=== PATIENT | female | born 1995 | race Caucasian/White ===

== ENCOUNTER 2023-07-09 09:18 | Emergency (ER) | payer OTHER, MEDICAID, SELFPAY ==
[2023-07-09 09:31] VITALS: BP 104/69; PULSE 78; RESP 18; TEMP 36.7; O2SAT 100
--- NOTE | 2023-07-09 09:41 | ED_ITS ---
HPI - URI/Sore Throat General Chief Complaint: Upper Respiratory Symptoms Stated Complaint: fever Time Seen by Provider: 07/09/23 09:25 Source: patient Mode of arrival: Ambulatory History of Present Illness HPI Narrative: 27-year-old female with no reported past medical history presents for body aches, fever, frontal headache. She states that all she wanted was a note for work, but when she went to the walk-in clinic they did not take her insurance and referred her to the ER instead. Declines any testing today. Related Data Previous Rx's Medication Instructions Recorded acetaminophen 325 mg tablet 650 mg (2 x 325 mg) PO Q6H PRN 07/09/23 (Tylenol) fever or pain #90 tabs ibuprofen 200 mg tablet 400 mg (2 x 200 mg) PO Q8H PRN 07/09/23 fever or pain #90 tabs Allergies Allergy/AdvReac Type Severity Reaction Status Date / Time No Known Drug Allergies Allergy Verified 07/09/23 09:37 Review of Systems Review of Systems Narrative: Negative except as noted above Patient History Social History Smoking Status: Former smoker Smoking Status: Former smoker tobacco type: cigarettes Substance Use Type: does not use Exam Initial Vital Signs Initial Vital Signs: Vital Signs Temperature 98.0 F 07/09/23 09:31 Pulse Rate 78 07/09/23 09:31 Respiratory Rate 18 07/09/23 09:31 Blood Pressure 104/69 07/09/23 09:31 Pulse Oximetry 100 07/09/23 09:31 Oxygen Delivery Method Room Air 07/09/23 09:31 Const: Awake, alert, no acute distress, nontoxic appearing Eyes: PERRL, EOMI, conjunctiva normal ENT: Atraumatic, dentition normal, mucous membranes moist Cardiac: regular rate, regular rhythm RESP: unlabored, clear bilaterally, no wheezing GI: Atraumatic, soft, nontender, nondistended, no rebound, no guarding MSK: Atraumatic, full range of motion, pulses equal Skin: Warm, Dry, intact, no rashes Neuro: AO x3, CN II-XII grossly intact, moves all extremities Psych: affect normal, mood normal, not suicidal, not homicidal Course Course Course Narrative: Well-appearing patient, presenting with symptoms consistent with viral syndrome, here solely for a note for work. Offered Tylenol for headache, patient accepted. She is currently staying at a [facility] with her children who have similar symptoms. Tylenol and Motrin prescription sent to pharmacy of choice. Orders Ordered: ED Orders 07/09/23 09:36 Consult to CONFERENCE SERVICES COORDINATOR - Multiskill Operator Stat Discontinued Medications Acetaminophen (Acetaminophen 325 Mg Tablet) 975 mg PO NOW ONE Stop: 07/09/23 09:49 Last Admin: 07/09/23 09:54 Dose: 975 mg Documented By: ROVERTO Vital Signs Vital signs: Vital Signs - 8 hr 07/09/23 09:31 Temperature 98.0 F Pulse Rate 78 Respiratory Rate 18 Blood Pressure 104/69 Pulse Oximetry 100 Oxygen Delivery Method Room Air Discharge Plan Departure Patient Disposition: Home Clinical Impression: Acute viral syndrome Instructions: DI for Viral Syndrome Prescriptions: New acetaminophen [Tylenol] 325 mg tablet 650 mg PO Q6H PRN (Reason: fever or pain) Qty: 90 0RF ibuprofen 200 mg tablet 400 mg PO Q8H PRN (Reason: fever or pain) Qty: 90 0RF Stand Alone Forms: Patient Portal/API, Work Release Note
[2023-07-09] MEDS: ACETAMINOPHEN 325 MG TABLET 975 MG PO (09:54)
== END 2023-07-09 10:08 | disposition home or self-care (01) ==
PROVIDERS: Emergency Provider Emergency Medicine
DX: B34.9 Viral infection, unspecified (principal)
CPT/HCPCS: 99282; 99283

== ENCOUNTER 2023-07-18 09:12 | Emergency (ER) | payer OTHER, MEDICAID, SELFPAY ==
[2023-07-18 09:19] VITALS: BP 106/65; PULSE 82; RESP 16; TEMP 36.9; O2SAT 99; BMI 19.3
[2023-07-18 11:30] LABS: Bacteria Urine Few (2-10); RBC Urine None Seen (0-5/HPF); WBC Urine 1-5/HPF (0-5/HPF)
[2023-07-18 11:31] LABS: Culture Indicated Urine Specimen Cultured; Squamous Epithelial Cell Urine 1-5 /HPF (0-5/HPF)
--- NOTE | 2023-07-18 12:57 | DI.US.S_ITS ---
PROCEDURE: US PELVIC COMPLETE INDICATIONS: LOWER ABDOMINAL PAIN WORSE THAN USUAL. CURRENT MENSES TECHNIQUE: Real-time scanning was performed of the pelvic organs, with image documentation. Additional endovaginal scanning was necessary due to incomplete visualization of the adnexal and endometrial structures by transabdominal scanning. COMPARISON: None. FINDINGS: Uterus: Uterus is anteverted and normal in size at.8.3 x 4.8 x 3.9 cm. The myometrium is homogeneous. The endometrium measures 1.5 mm combined thickness. Ovaries: The right ovary measures 3.7 x 3.6 x 1.8 cm, with a calculated ovarian volume of 12.4 cc. The left ovary measures 4.1 x 2.7 x 2.7 cm, with a calculated ovarian volume of 14.9 cc. Cysts are present within the left ovary measuring 3.2 x 2.1 x 2.4 cm. Other: No pathologic free abdominal or pelvic fluid. Vertebral and venous flow is identified within the ovaries bilaterally. IMPRESSION: Left ovarian cysts. We strive to produce accurate, complete, and clear reports of imaging services. To assist us in improving patient care, this report was composed using standard report templates and voice recognition software. Therefore, it may contain abnormal punctuation, insertions and/or omissions. Occasional wrong-word or sound-alike substitutions may occur. Though we review the report and make efforts to correct it, we do recommend that the report be read carefully in proper context to recognize any text inaccuracies. Dictated by: Mary Grace Hall M.D. on 07/18/2023 at 14:15 Approved by: Mary Grace Hall M.D. on 07/18/2023 at 14:17
[2023-07-18] MEDS: ACETAMINOPHEN 325 MG TABLET 975 MG PO (13:09)
--- NOTE | 2023-07-18 13:09 | ED_ITS ---
HPI - Abdominal Pain <Allyson Grewal PA-C - Last Filed: 07/18/23 14:58> General Chief Complaint: Abdominal Pain Stated Complaint: inplant moved Time Seen by Provider: 07/18/23 09:34 Mode of arrival: Ambulatory History of Present Illness HPI narrative: Patient is a 27-year-old female who presents with 2 days of lower abdominal pain. She has a Nexplanon implant in her left upper arm and notes it has moved recently. It was placed in 2020 and expires 03/03. She denies fever chills, nausea vomiting, urinary symptoms. She normally has menses approximately once a month, although they have been irregular. She normally has heavy bleeding with minimal pain. Two days ago she had moderate pain with light bleeding, yesterday felt okay, and today woke up crying, states the pain is severe and the bleeding is very light. On reassessment during her visit to the emergency room, she reports the bleeding has increased to heavy which is normal for her. The pain is bilateral over her lower abdomen. She denies any vaginal discharge besides blood, no foul smell, no itching. She has not taken any medication prior to arrival. She states the pain is 9/10. Related Data Previous Rx's Medication Instructions Recorded acetaminophen 325 mg tablet 650 mg (2 x 325 mg) PO Q6H PRN 07/09/23 (Tylenol) fever or pain #90 tabs ibuprofen 200 mg tablet 400 mg (2 x 200 mg) PO Q8H PRN 07/09/23 fever or pain #90 tabs Allergies Allergy/AdvReac Type Severity Reaction Status Date / Time No Known Drug Allergies Allergy Verified 07/18/23 09:23 Review of Systems <Allyson Grewal PA-C - Last Filed: 07/18/23 14:58> Review of Systems ROS Unobtainable: All systems reviewed & are unremarkable except as noted in HPI and below Patient History <Allyson Grewal PA-C - Last Filed: 07/18/23 14:58> Social History Smoking Status: Former smoker Smoking Status: Former smoker tobacco type: cigarettes Substance Use Type: does not use Exam <Allyson Grewal PA-C - Last Filed: 07/18/23 14:58> Narrative Exam Narrative: GENERAL: 27 year old patient appears stated age. Well-developed patient, in mild distress. On the verge of tears. NEURO: AOx3. HEAD: Atraumatic. Normocephalic. EYES: Pupils equal round and reactive. Extraocular motions intact. No scleral icterus. No injection or drainage. ENT: Nose without bleeding or purulent drainage. Airway patent. RESPIRATORY: no distress or increased work of breathing GASTROINTESTINAL: Abdomen soft, non-tender to palpation, non distended. No CVA tenderness. EXTREMITIES: No edema or joint tenderness. SKIN: No rash or erythema of visible areas. Nexplanon palpable in posterior left upper arm, no erythema, edema. Distal circulation intact. Initial Vital Signs Initial Vital Signs: Vital Signs Temperature 98.5 F 07/18/23 09:19 Pulse Rate 82 07/18/23 09:19 Respiratory Rate 16 07/18/23 09:19 Blood Pressure 106/65 07/18/23 09:19 Pulse Oximetry 99 07/18/23 09:19 Oxygen Delivery Method Room Air 07/18/23 09:19 <Efraín Rincon DO - Last Filed: 07/18/23 14:59> Initial Vital Signs Initial Vital Signs: Vital Signs Temperature 98.5 F 07/18/23 09:19 Pulse Rate 82 07/18/23 09:19 Respiratory Rate 16 07/18/23 09:19 Blood Pressure 106/65 07/18/23 09:19 Pulse Oximetry 99 07/18/23 09:19 Oxygen Delivery Method Room Air 07/18/23 09:19 Course <Allyson Grewal PA-C - Last Filed: 07/18/23 14:58> Orders Ordered: ED Orders 07/18/23 11:05 Urine Culture Stat Urine Microscopic Stat 07/18/23 12:57 US pelvic complete Stat 07/18/23 14:10 Chlamydia Gonorrhea PCR -URINE Stat Discontinued Medications Acetaminophen (Acetaminophen 325 Mg Tablet) 975 mg PO NOW ONE Stop: 07/18/23 12:58 Last Admin: 07/18/23 13:09 Dose: 975 mg Documented By: ESPINOZA Ketorolac Tromethamine (Ketorolac 30 Mg/Ml Vial) 30 mg IM NOW ONE Stop: 07/18/23 12:58 Last Admin: 07/18/23 13:10 Dose: 30 mg Documented By: SB Vital Signs Vital signs: Vital Signs - 8 hr 07/18/23 09:19 07/18/23 14:12 Temperature 98.5 F 98.1 F Pulse Rate 82 65 Respiratory Rate 16 16 Blood Pressure 106/65 106/66 Pulse Oximetry 99 100 Oxygen Delivery Method Room Air Room Air <Efraín Rincon DO - Last Filed: 07/18/23 14:59> Orders Ordered: ED Orders 07/18/23 11:05 Urine Culture Stat Urine Microscopic Stat 07/18/23 12:57 US pelvic complete Stat 07/18/23 14:10 Chlamydia Gonorrhea PCR -URINE Stat Discontinued Medications Acetaminophen (Acetaminophen 325 Mg Tablet) 975 mg PO NOW ONE Stop: 07/18/23 12:58 Last Admin: 07/18/23 13:09 Dose: 975 mg Documented By: SB Ketorolac Tromethamine (Ketorolac 30 Mg/Ml Vial) 30 mg IM NOW ONE Stop: 07/18/23 12:58 Last Admin: 07/18/23 13:10 Dose: 30 mg Documented By: SB Vital Signs Vital signs: Vital Signs - 8 hr 07/18/23 09:19 07/18/23 14:12 Temperature 98.5 F 98.1 F Pulse Rate 82 65 Respiratory Rate 16 16 Blood Pressure 106/65 106/66 Pulse Oximetry 99 100 Oxygen Delivery Method Room Air Room Air MDM - Abdominal Pain <Allyson Grewal PA-C - Last Filed: 07/18/23 14:58> Lab Data Labs: Lab Results 07/18/23 Range/Units 11:05 Urine RBC None seen (0-5/HPF) Urine WBC 1-5/hpf (0-5/HPF) Ur Squamous Epith Cells 1-5 /hpf (0-5/HPF) Urine Bacteria Few (2-10) H (None) Ur Culture Indicated? Specimen cultured Point of care testing: Point of Care Testing Test Results Negative Urine Dip Bedside Urine Glucose Negative Bedside Urine Bilirubin - Negative Bedside Urine Ketone - Negative Urine Specific [place] 1.030 Bedside Urine Occult Blood ++ Bedside Urine pH 6.0 Bedside Urine Protein - Negative Bedside Urine Urobilinogen - Negative Bedside Urine Nitrite - Negative Bedside Urine Leukocytes - Negative Esterase Imaging Data US - FINISHING MACHINE TENDER: Radiologist's Impression: PROCEDURE: US PELVIC COMPLETE INDICATIONS: LOWER ABDOMINAL PAIN WORSE THAN USUAL. CURRENT MENSES TECHNIQUE: Real-time scanning was performed of the pelvic organs, with image documentation. Additional endovaginal scanning was necessary due to incomplete visualization of the adnexal and endometrial structures by transabdominal scanning. COMPARISON: None. FINDINGS: Uterus: Uterus is anteverted and normal in size at.8.3 x 4.8 x 3.9 cm. The myometrium is homogeneous. The endometrium measures 1.5 mm combined thickness. Ovaries: The right ovary measures 3.7 x 3.6 x 1.8 cm, with a calculated ovarian volume of 12.4 cc. The left ovary measures 4.1 x 2.7 x 2.7 cm, with a calculated ovarian volume of 14.9 cc. Cysts are present within the left ovary measuring 3.2 x 2.1 x 2.4 cm. Other: No pathologic free abdominal or pelvic fluid. Vertebral and venous flow is identified within the ovaries bilaterally. IMPRESSION: Left ovarian cysts. We strive to produce accurate, complete, and clear reports of imaging services. To assist us in improving patient care, this report was composed using standard report templates and voice recognition software. Therefore, it may contain abnormal punctuation, insertions and/or omissions. Occasional wrong-word or sound-alike substitutions may occur. Though we review the report and make efforts to correct it, we do recommend that the report be read carefully in proper context to recognize any text inaccuracies. Dictated by: Mary Grace Hall M.D. on 07/18/2023 at 14:15 Approved by: Mary Grace Hall M.D. on 07/18/2023 at 14:17 [facility] Narrative Medical decision making narrative: Multiple etiologies for patient's symptoms considered including, but not limited to: Ovarian torsion, ovarian cyst, ectopic , PID, menstrual cramps, constipation. Urine preganancy negative, UA with 2+ blood. Abdominal ultrasound with 2 left ovarian cysts, likely physiologic. Gonorrhea/chlamydia pending. Doubt PID as patient denies recent sexual activity, no discharge, acute onset of pelvic pain associated with menstrual bleeding. We will notify her if results are positive and require treatment. Pelvic exam not done today as patient reports no abnormal discharge, bleeding consistent with menstruation. Discussed results with patient, advised that these symptoms are likely secondary to menstrual c ramps, possibly worsened by the large cyst. I would suggest Tylenol, ibuprofen, rest and heat. She bleeds quite heavily and reports a history of being anemic; I advised her to follow up with her primary care guarding other control methods that may help decrease her bleeding. Return precautions advised. Patient's symptoms improved over duration of stay with above-stated therapies. Findings and discharge diagnosis discussed with patient/family followed by verbalization of understanding Return precautions discussed with patient/family whom verbalize understanding of diagnosis and plan <Efraín Rincon, DO - Last Filed: 07/18/23 14:59> Lab Data Labs: Lab Results 07/18/23 Range/Units 11:05 Urine RBC None seen (0-5/HPF) Urine WBC 1-5/hpf (0-5/HPF) Ur Squamous Epith Cells 1-5 /hpf (0-5/HPF) Urine Bacteria Few (2-10) H (None) Ur Culture Indicated? Specimen cultured Point of care testing: Point of Care Testing Test Results Negative Urine Dip Bedside Urine Glucose Negative Bedside Urine Bilirubin - Negative Bedside Urine Ketone - Negative Urine Specific [place] 1.030 Bedside Urine Occult Blood ++ Bedside Urine pH 6.0 Bedside Urine Protein - Negative Bedside Urine Urobilinogen - Negative Bedside Urine Nitrite - Negative Bedside Urine Leukocytes - Negative Esterase Discharge Plan Departure Patient Disposition: Home Clinical Impression: Menstrual cramps Ovarian cyst Qualifiers: Laterality: left Qualified Code(s): N83.202 - Unspecified ovarian cyst, left side Instructions: DI for Ovarian Cyst, DI for Abdominal Pain-Adult Activity Restrictions/Additional Instructions: *You have been diagnosed with lower abdominal pain during menstruation. Ultrasound shows normal cysts on your left ovary. There is no evidence of ovarian torsion or other emergencies. I suggest taking Tylenol and ibuprofen, resting, hot water bottle or heating pad to the painful area. Please follow up with your primary care provider to discuss other control options that may decrease your menstrual bleeding. *What to do: *Please continue to take your regular medications as directed. [ ] New medication prescriptions sent to your pharmacy: [ ] [ ] New medication written as a paper prescription [x] No new medications given *Please follow up with your primary care provider in 2-3 days, call for an appointment. Let them know you were seen in the Emergency Department and that we ask that you be seen in follow up. We will electronically transmit a record of today's note if your PCP is in our system *If you do not have a primary care provider please contact the [facility] Resource line at [phone]. They will ask some questions about your medical history and help get you set up with a doctor in the community. *Return to Emergency Department if you should have any new, worsening or concerning symptoms, such as [fever greater than 101 F, shaking chills, worsening pain, persistent vomiting or other concerning symptoms]. Prescriptions: No Action acetaminophen [Tylenol] 325 mg tablet 650 mg PO Q6H PRN (Reason: fever or pain) Qty: 90 0RF ibuprofen 200 mg tablet 400 mg PO Q8H PRN (Reason: fever or pain) Qty: 90 0RF Referrals: Miscellaneous,Doctor, MD [Primary Care Provider] - Stand Alone Forms: Patient Portal/API, Work Release Note ED Sign-out <Efraín Rincon, - Last Filed: 07/18/23 14:59> Cosign ED Attending Cosignature Attestation: Dr Rincon Co-Sign Statement: I was available for consultation during this patient's emergency department visit. This chart is signed by myself for administrative purposes only. I did not have direct contact with this patient during this visit. They were seen independently by the APC.
[2023-07-18] MEDS: KETOROLAC 30 MG/ML VIAL IM (13:10)
[2023-07-18 14:12] VITALS: BP 106/66; PULSE 65; RESP 16; TEMP 36.7; O2SAT 100
[2023-07-18 15:52] LABS: Urine N gonorrhoeae NOT DETECTED
[2023-07-18 16:00] LABS: Urine Chlamydia NOT DETECTED
== END 2023-07-18 15:06 | disposition home or self-care (01) ==
PROVIDERS: Emergency Medicine; Emergency Provider Physician Assistant
DX: N83.202 Unspecified ovarian cyst, left side (principal); N94.6 Dysmenorrhea, unspecified
CPT/HCPCS: 76856; 81003; 81015; 81025; 87086; 87491; 87591; 93975; 96372; 99283; 99284; J1885

== ENCOUNTER 2023-07-26 15:50 | Emergency (ER) | payer OTHER, MEDICAID, SELFPAY ==
[2023-07-26 15:58] VITALS: BP 101/61; PULSE 88; RESP 20; TEMP 36.7; O2SAT 99; BMI 19.3
--- NOTE | 2023-07-26 18:32 | ED.URI ---
HPI - URI/Sore Throat <Allyson Grewal PA-C - Last Filed: 07/26/23 18:35> General Chief Complaint: Upper Respiratory Symptoms Stated Complaint: sore throat, light headed Time Seen by Provider: 07/26/23 16:22 Source: patient Mode of arrival: Ambulatory History of Present Illness HPI Narrative: Patient is a 27-year-old female presents with her son due to a sore throat. Her son has had a cough for 3 to 4 days and she woke up with a sore throat this morning. She denies any fever or chills, difficulty swallowing, cough, runny nose or other infectious symptoms. She notes that she is currently living at the [facility] and is required to provide a doctor's note if she needs to miss work, she is requesting a day off work tomorrow so that she can rest Related Data Previous Rx's Medication Instructions Recorded acetaminophen 325 mg tablet 650 mg (2 x 325 mg) PO Q6H PRN 07/09/23 (Tylenol) fever or pain #90 tabs ibuprofen 200 mg tablet 400 mg (2 x 200 mg) PO Q8H PRN 07/09/23 fever or pain #90 tabs Allergies Allergy/AdvReac Type Severity Reaction Status Date / Time No Known Drug Allergies Allergy Verified 07/18/23 09:23 Review of Systems <Allyson Grewal PA-C - Last Filed: 07/26/23 18:35> Review of Systems ROS Unobtainable: All systems reviewed & are unremarkable except as noted in HPI and below Patient History <Allyson Grewal PA-C - Last Filed: 07/26/23 18:35> Social History Smoking Status: Former smoker Smoking Status: Former smoker tobacco type: cigarettes Substance Use Type: does not use Exam <Allyson Grewal PA-C - Last Filed: 07/26/23 18:35> Narrative Exam Narrative: GENERAL: 27 year old patient appears stated age. Well-developed patient, in no distress. NEURO: AOx3. HEAD: Atraumatic. Normocephalic. EYES: Pupils equal round and reactive. Extraocular motions intact. No scleral icterus. No injection or drainage. ENT: Nose without bleeding or purulent drainage. Throat with mild erythema, no tonsillar hypertrophy or exudate. Airway patent. TMs pearly theodore bilaterally NECK: Trachea midline. Non tender CARDIOVASCULAR: Regular rate and rhythm without murmurs, gallops, or rubs. RESPIRATORY: Clear to auscultation. Breath sounds equal bilaterally. No wheezes, rales, or rhonchi. EXTREMITIES: No edema or joint tenderness. SKIN: No rash or erythema of visible areas Initial Vital Signs Initial Vital Signs: Vital Signs Temperature 98.1 F 07/26/23 15:58 Pulse Rate 88 07/26/23 15:58 Respiratory Rate 20 07/26/23 15:58 Blood Pressure 101/61 07/26/23 15:58 Pulse Oximetry 99 07/26/23 15:58 Oxygen Delivery Method Room Air 07/26/23 15:58 <Efraín Rincon DO - Last Filed: 07/26/23 18:36> Initial Vital Signs Initial Vital Signs: Vital Signs Temperature 98.1 F 07/26/23 15:58 Pulse Rate 88 07/26/23 15:58 Respiratory Rate 20 07/26/23 15:58 Blood Pressure 101/61 07/26/23 15:58 Pulse Oximetry 99 07/26/23 15:58 Oxygen Delivery Method Room Air 07/26/23 15:58 Course <Allyson Grewal PA-C - Last Filed: 07/26/23 18:35> Vital Signs Vital signs: Vital Signs - 8 hr 07/26/23 15:58 Temperature 98.1 F Pulse Rate 88 Respiratory Rate 20 Blood Pressure 101/61 Pulse Oximetry 99 Oxygen Delivery Method Room Air <DO Manuel Layton Last Filed: 07/26/23 18:36> Vital Signs Vital signs: Vital Signs - 8 hr 07/26/23 15:58 Temperature 98.1 F Pulse Rate 88 Respiratory Rate 20 Blood Pressure 101/61 Pulse Oximetry 99 Oxygen Delivery Method Room Air MDM - URI/Sore Throat <Allyson Grewal PA-C - Last Filed: 07/26/23 18:35> MDM Narrative Medical decision making narrative: Patient's history and physical exam consistent with a viral upper respiratory illness versus viral pharyngitis. Although she has throat pain and mild erythema of the posterior oropharynx, she has no fever and no tonsillar hypertrophy or exudates, so rapid strep test is not indicated. I advised rest, increase fluids, Tylenol or ibuprofen for fever or pain. She should stay home for 24 hours and rest. A work note has been given. Patient's symptoms improved over duration of stay with above-stated therapies. Findings and discharge diagnosis discussed with patient/family followed by verbalization of understanding Return precautions discussed with patient/family whom verbalize understanding of diagnosis and plan Discharge Plan Departure Patient Disposition: Home Clinical Impression: Upper respiratory infection, viral Instructions: DI for Viral Upper Respiratory Infection -- Adult Activity Restrictions/Additional Instructions: *You have been diagnosed with viral upper respiratory infection. I would suggest you rest, drink lots of water, use Tylenol or ibuprofen for body aches or pain and [id number] cold medicines as needed for other symptoms. *What to do: *Please continue to take your regular medications as directed. [ ] New medication prescriptions sent to your pharmacy: [ ] [ ] New medication written as a paper prescription [x ] No new medications given *Please follow up with your primary care provider in 2-3 days, call for an appointment. Let them know you were seen in the Emergency Department and that we ask that you be seen in follow up. We will electronically transmit a record of today's note if your PCP is in our system *If you do not have a primary care provider please contact the [facility] Resource line at [phone]. They will ask some questions about your medical history and help get you set up with a doctor in the community. *Return to Emergency Department if you should have any new, worsening or concerning symptoms, such as [fever greater than 101 F, shaking chills, worsening pain, persistent vomiting or other concerning symptoms]. Prescriptions: No Action acetaminophen [Tylenol] 325 mg tablet 650 mg PO Q6H PRN (Reason: fever or pain) Qty: 90 0RF ibuprofen 200 mg tablet 400 mg PO Q8H PRN (Reason: fever or pain) Qty: 90 0RF Referrals: Miscellaneous,Doctor, MD [Primary Care Provider] - Stand Alone Forms: Patient Portal/API, Work Release Note ED Sign-out <Efraín Rincon, DO - Last Filed: 07/26/23 18:36> Cosign ED Attending Cosgiorgioature Attestation: Dr Rincon Co-Sign Statement: I was available for consultation during this patient's emergency department visit. This chart is signed by myself for administrative purposes only. I did not have direct contact with this patient during this visit. They were seen independently by the APC.
== END 2023-07-26 16:40 | disposition home or self-care (01) ==
PROVIDERS: Emergency Provider Physician Assistant
DX: J06.9 Acute upper respiratory infection, unspecified (principal); Z87.891 Personal history of nicotine dependence
CPT/HCPCS: 99281; 99282

== ENCOUNTER 2024-04-18 08:05 | Emergency (ER) | payer OTHER, SELFPAY ==
[2024-04-18 08:10] VITALS: BP 100/71; PULSE 97; RESP 16; TEMP 36.4; O2SAT 99; BMI 22.1
--- NOTE | 2024-04-18 08:24 | ED.GENADULT ---
HPI - General Adult General Chief complaint: Ear Stated complaint: R ear pain Time Seen by Provider: 04/18/24 08:15 Source: patient Mode of arrival: Ambulatory Limitations: no limitations History of Present Illness HPI narrative: Patient is a 28-year-old female who is here for evaluation of right ear pain. She states that couple days ago she was cleaning out her right ear with a Q-tip. States she was just using it on the outside however she accidentally bumped her arm and the Q-tip went into her ear. Since that time she was had pain and decreased hearing. No sinus congestion. Has not tried anything for the discomfort prior to arrival Related Data Previous Rx's Medication Instructions Recorded acetaminophen 325 mg tablet 650 mg (2 x 325 mg) PO Q6H PRN 07/09/23 (Tylenol) fever or pain #90 tabs ibuprofen 200 mg tablet 400 mg (2 x 200 mg) PO Q8H PRN 07/09/23 fever or pain #90 tabs Allergies Allergy/AdvReac Type Severity Reaction Status Date / Time No Known Drug Allergies Allergy Verified 07/18/23 09:23 Review of Systems Constitutional Constitutional: Reports system reviewed and no additional complaints, except as documented ENT Ears, Nose, Mouth, and Throat: Reports system reviewed and no additional complaints, except as documented Patient History Social History Smoking Status: Former smoker Smoking Status: Former smoker tobacco type: cigarettes Substance Use Type: does not use Exam Initial Vital Signs Initial Vital Signs: Vital Signs Temperature 97.6 F 04/18/24 08:10 Pulse Rate 97 H 04/18/24 08:10 Respiratory Rate 16 04/18/24 08:10 Blood Pressure 100/71 04/18/24 08:10 Pulse Oximetry 99 04/18/24 08:10 Oxygen Delivery Method Room Air 04/18/24 08:10 HENMT Ears: TM normal on the left and EAC's normal HENMT Other: Unsure if it is cerumen or bulging tympanic membrane on the right. No overt rupture Skin General: no rashes or lesions noted Course Vital Signs Vital signs: Vital Signs - 8 hr 04/18/24 08:10 Temperature 97.6 F Pulse Rate 97 H Respiratory Rate 16 Blood Pressure 100/71 Pulse Oximetry 99 Oxygen Delivery Method Room Air Medical Decision Making MDM Narrative Medical decision making narrative: Left tympanic membranes unremarkable. The external auditory canal on the right is unremarkable. Unsure whether or not what I am looking at in the right ear is a bulging tympanic membrane with a hemotympanum more cerumen. It is too posterior for me to adequately evaluate. I can not say for sure that she does not have a tympanic membrane rupture. If his hemotympanum I have less concern for rupture if it is cerumen that I can not see the tympanic membrane completely. Plan will be is to discharge the patient home with instructions follow-up with ear nose and throat. She was given contact information for this. She was given return precautions. She expressed understanding and agreement. Discharge Plan Departure Patient Disposition: Home Clinical Impression: Pain in right ear Instructions: Ruptured Eardrum Activity Restrictions/Additional Instructions: I do recommend that when the office is open later today you contact Dr. James (ENT) for a follow-up with the beginning of next week. Until then I do not recommend you put anything in your ear to include Q-tips or any sort of drops. You can take Tylenol or ibuprofen for discomfort. Return to the emergency department for new symptoms. Prescriptions: No Action acetaminophen [Tylenol] 325 mg tablet 650 mg PO Q6H PRN (Reason: fever or pain) Qty: 90 0RF ibuprofen 200 mg tablet 400 mg PO Q8H PRN (Reason: fever or pain) Qty: 90 0RF Referrals: Cristóbal James MD [Physician] - Miscellaneous,MD Kena [Primary Care Provider] - Stand Alone Forms: Patient Portal/API
== END 2024-04-18 08:44 | disposition home or self-care (01) ==
PROVIDERS: Emergency Provider Emergency Medicine
DX: H92.01 Otalgia, right ear (principal)
CPT/HCPCS: 99281